=== PATIENT | male | born 1985 | race Two or more races ===

== ENCOUNTER 2024-04-30 07:10 | Day surgery (SDC) | payer BC, SELFPAY ==
[2024-04-29 14:05] VITALS: BMI 43.5
[2024-04-30] VITALS (9 sets, daily range): BP systolic 119–166; BP diastolic 70–101; PULSE 77–88; RESP 7–20; TEMP 36.6–36.7; O2SAT 94–99; BMI 43.2
[2024-04-30] MEDS: DiphenhydrAMINE INJ 50 MG/ML VIAL 25 MG IV (08:48)
[2024-04-30] MEDS: MIDAZOLAM INJ 1 MG/ML VIAL 2 ML (ASD USE ONLY) 2 MG IV (08:53)
[2024-04-30] MEDS: fentaNYL CIT INJ 50 mCg/ML AMP 2ML (ASD USE ONLY) IV (08:54)
== END 2024-04-30 09:51 | disposition home or self-care (01) ==
PROVIDERS: PCP Internal Medicine; Referring Provider Internal Medicine Gastroenterology; Visit Provider Internal Medicine Gastroenterology
PROC: (CPT 43239; principal; 2024-04-30 07:30)
DX: Z01.818 Encounter for other preprocedural examination (principal); E66.01 Morbid (severe) obesity due to excess calories; K29.70 Gastritis, unspecified, without bleeding; Z68.41 Body mass index [BMI] 40.0-44.9, adult; K31.89 Other diseases of stomach and duodenum; K29.50 Unspecified chronic gastritis without bleeding
CPT/HCPCS: 43239; A4649; J1200; J2250; J3010